=== PATIENT | female | born 1980 | race Two or more races ===

== ENCOUNTER 2019-02-22 12:28 | Emergency (ER) | payer SELFPAY ==
[~2019-02-22] VITALS: Ht 149.9 cm; Wt 75.7 kg
[2019-02-22 13:24] LABS: Basophils # (auto) 0 uL; Basophils % (auto) 0.5 % (0.0-2.0); Eosinophils # (auto) 0.1 uL; Eosinophils % (auto) 1.1 % (0.0-7.0); Hematocrit 44.2 % (36.0-46.0); Hemoglobin 15.1 g/dL (12.2-16.2); Lymphocytes % (auto) 31.2 % (10.0-50.0); Mean Corpuscular Hemoglobin 31.1 pg (28.0-32.0); Mean Corpuscular Hgb Conc. 34.1 g/dL (32.0-36.0); Mean Corpuscular Volume 91.4 fL (80.0-100.0); Monocytes # (auto) 0.5 uL; Monocytes % (auto) 4.9 % (0.0-12.0); Neutrophils % (auto) 62.3 % (37.0-80.0); Nucleated Red Blood Cells % 0.1 %; Platelet Count (auto) 325 10^3/uL (140-450); Red Blood Cells 4.84 10^6/uL (4.0-5.20); Red Cell Distribution Width 13.6 % (11.8-14.3); White Blood Cell 9.7 10^3/uL (4.4-10.8)
[2019-02-22 13:42] LABS: BUN/Creatinine Ratio 9.2; Calcium 9.4 mg/dL (8.5-10.1); Potassium 3.4 mmol/L (3.5-5.1)
[2019-02-22 13:45] LABS: Bilirubin, Total 0.5 mg/dL (0.2-1.0); Total Protein 8.7 g/dL (6.4-8.2)
[2019-02-22] MEDS ORDERED: LORazepam 0.5 MG TAB PO ONE (20:30)
[2019-02-22 20:32] VITALS: BP 125/89
== END 2019-02-22 21:04 | disposition home or self-care (01) ==
LOC: ER 12:32
DX: F43.9 Reaction to severe stress, unspecified (principal)
CPT/HCPCS: 36415; 70450; 80053; 85025; 93005